=== PATIENT | male | born 1965 | race Caucasian/White ===

== ENCOUNTER 2016-08-17 09:28 | Emergency (ER) | payer BC ==
--- NOTE | 2016-08-17 10:03 | ED Physician Documentation ---
Dizziness - HISTORIAN Historian: patient - HPI Stated Complaint: Dizziness Chief Complaint: Dizziness Timing: sudden onset, other (lasts about 5-20 minutes) Duration: intermittent episodes Severity: moderate Associated Symptoms: vestibular, hearing loss (stable at baseline), ringing in ear (yesterday, not anything new), sense of spinning (left to right) Decreased Ability to Stand/ Walk: off balance, cannot walk Further Comments: yes - ROS CONST: none - PAST HX Past History: none, other (BS was 213, fast BS have been 110-130) Surgeries/Procedures: none Allergies/Adverse Reactions: Allergies Allergy/AdvReac Type Severity Reaction Status Date / Time Sulfa (Sulfonamide Allergy Unknown Unverified 09/16/14 13:10 Antibiotics) - SOCIAL HX Smoking History: non-smoker Alcohol Use: rarely Drug Use: none - FAMILY HX Family History: none - VITAL SIGNS Vital Signs: Vital Signs Temp Pulse Resp BP Pulse Ox 98 F 72 18 134/70 95 08/17/16 09:30 08/17/16 09:30 08/17/16 09:30 08/17/16 09:30 08/17/16 09:30 - REVIEWED ASSESSMENTS Nursing Assessment Reviewed: Yes Vitals Reviewed: Yes Dizziness Physical Exam - Physical Exam General Appearance: no distress EENT: ENT inspection normal, pharynx normal, no signs of dehydration, other ( cerumen with impression fo Q tip). No: pharyngeal erythema Neck: normal inspection Respiratory: no respiratory distress, breath sounds nml, chest non-tender. No: respiratory distress, wheezes, rales, rhonchi CVS: reg rate & rhythm, heart sounds normal, equal pulses Abdomen: soft, no organomegaly, normal bowel sounds, no distension, non-tender Skin: warm/dry, normal color Neuro: nml orientation, nml speech, nml cognition, mood/affect nml Cranial: nml as tested, no evidence of acute CVA Cerebellar: nml as tested, abnml gait (at the time of examination) Sensorimotor: motor nml, sensation nml. No: weakness Discharge Clincal Impression: Vertigo Referrals: Apolinar Jacobs MD [Primary Care Provider] - 2 Days Additional Instructions: Drink a lot of fluids, Try to decrease your carbs and sugars in your diet. Take Meclazine (antivert) 25mg up to every 6 hours as needed for dizziness. Avoiding working conditions that might be dangerous if you develop any dizzy spells. Condition: Stable Disposition: 01 HOME, SELF-CARE Decision to Admit: NO Date of Decison to Admit: 08/17/16 Decision Time: 10:26
[2016-08-17 11:07] LABS: eGFR (African) > 60; eGFR (Non-African) > 60
[2016-08-17 11:49] VITALS: BP 112/78
== END 2016-08-17 11:40 | disposition home or self-care (01) ==
LOC: ED 09:28
DX: R42 Dizziness and giddiness (principal)
CPT/HCPCS: 36415; 80053; 83036; 99283

== ENCOUNTER 2016-08-30 09:51 | Outpatient (CLI) | payer BC | END 2016-08-30 10:00 | LOC: LAB 09:51 | PROVIDERS: ATTEND Family Medicine | DX: E78.5 Hyperlipidemia, unspecified (principal); R73.9 Hyperglycemia, unspecified | CPT/HCPCS: 36415; 80061; 83036 ==

== ENCOUNTER 2017-03-14 16:32 | Outpatient (CLI) | payer BC ==
[2017-03-14 17:25] LABS: eGFR (African) > 60; eGFR (Non-African) > 60
[2017-03-15 16:30] LABS: ADENOVIRUS F 40/41 Not Detected (Not Detected); ASTROVIRUS Not Detected (Not Detected); C. DIFFICILE (TOXIN A/B) Not Detected (Not Detected); CRYPTOSPORIDIUM Not Detected (Not Detected); CYCLOSPORA CAYETANENSIS Not Detected (Not Detected); ENTAMOEBA HISTOLYTICA Not Detected (Not Detected); GIARDIA LAMBLIA Not Detected (Not Detected); ROTAVIRUS A Not Detected (Not Detected); SAPOVIRUS Not Detected (Not Detected); VIBRIO CHOLERAE Not Detected (Not Detected)
== END 2017-03-14 16:33 ==
LOC: LAB 16:32
PROVIDERS: ATTEND Family Medicine
DX: E78.2 Mixed hyperlipidemia (principal); R73.9 Hyperglycemia, unspecified; A09 Infectious gastroenteritis and colitis, unspecified
CPT/HCPCS: 36415; 80053; 80061; 83036; 87507

== ENCOUNTER 2017-07-04 08:08 | Outpatient (CLI) | payer BC | END 2017-07-04 08:10 | LOC: LAB 08:08 | PROVIDERS: ATTEND Nurse Practitioner Family | DX: E29.1 Testicular hypofunction (principal) | CPT/HCPCS: 36415; 84403 ==

== ENCOUNTER 2017-07-05 09:11 | Outpatient (CLI) | payer BC | END 2017-07-05 09:12 | LOC: LAB 09:11 | PROVIDERS: ATTEND Nurse Practitioner Family | DX: E29.1 Testicular hypofunction (principal) | CPT/HCPCS: 36415; 84403 ==

== ENCOUNTER 2019-04-14 18:01 | Emergency (ER) | payer BC ==
--- NOTE | 2019-04-14 18:10 | ED Physician Documentation ---
Head Injury - HISTORIAN Historian: patient - HPI Stated Complaint: fall Chief Complaint: Head Injury Additional Information: 53 year old male presents to the ER s/p fall and hit the back of his head on concrete- was dazed but did not lose consciousness. Onset: just prior to arrival Where: work Timing: still present Context: fall, direct blow Severity: moderate Loss of Consciousness: dazed - ROS CONST: headache CVS/RESP: none EYES/ENT: none MS/SKIN/LYMPH: denies: neck pain, back pain GI/: denies: nausea, vomiting - PAST HX Past History: other (HTN, Fungal infection-feet) Immunizations: UTD Allergies/Adverse Reactions: Allergies Allergy/AdvReac Type Severity Reaction Status Date / Time Sulfa (Sulfonamide Allergy Unknown Verified 04/14/19 18:08 Antibiotics) Home Medications: Ambulatory Orders Medication Instructions Recorded Losartan Potassium [Cozaar] 1 tab PO DAILY 04/14/19 - SOCIAL HX Smoking History: non-smoker Alcohol Use: none Drug Use: none - FAMILY HX Family History: none - VITAL SIGNS Vital Signs: Vital Signs Temp Pulse Resp BP Pulse Ox 98.6 F 75 18 145/96 95 04/14/19 18:05 04/14/19 18:05 04/14/19 18:05 04/14/19 18:05 04/14/19 18:05 - REVIEWED ASSESSMENTS Nursing Assessment Reviewed: Yes Vitals Reviewed: Yes ED Results Lab/Radiology - Radiology Radiology Impressions: Date of study: 04/14/2019. CLINICAL HISTORY: FALL TODAY; HIT BACK OF HEAD TECHNIQUE: 5 mm contiguous axial images of the brain, noncontrast. FINDINGS: There is no evidence of intracranial mass effect, hemorrhage, or acute hydrocephalus. The lateral ventricles are symmetrical and the 4th ventricle is midline without shift. No acute brain parenchymal changes or extra-axial fluid collections are identified. The posterior fossa contents are within normal limits. The calvarium is intact. The visualized sinuses and mastoid air cells are clear. IMPRESSION: No acute intracranial process. Electronically signed on Apr 14, 2019 6:29:13 PM CDT by: Elver Pickett - Orders Orders: ED Orders Category Date Time Status CT BRAIN W/O CONTRAST Stat Exams 04/14/19 Completed Head Injury Physical Exam - Physical Exam General Appearance: no acute distress, alert Head: non-tender, no swelling Neck: non-tender, painless ROM Eyes: DONNA, EOMI, lids & conjunct. nml ENT: nml external inspection, pharynx nml, ears nml, nose nml Neuro: alert, oriented x3, cooperative, interactive, mood/affect nml Cranial: nml as tested Cerebellar: nml as tested Sensorimotor: motor nml, sensation nml Resp/CVS: breath sounds nml, heart sounds nml, no resp. distress, lungs clear Abdomen: non-tender, nml bowel sounds Back: non-tender Skin: warm/dry, normal color Extremities: atraumatic, nml ROM, gait nml - [place] Coma Score Coma Scale Eye Opening: Spontaneous Coma Scale Verbal: Oriented Coma Scale Motor: Obeys Commands Discharge Clincal Impression: Head injury Referrals: Apolinar Jacobs MD [Primary Care Provider] - 2 Days Additional Instructions: Alternate Tylenol and Ibuprofen as needed for headaches Use ice pack to affected area Home and Rest Condition: Good Disposition: 01 HOME, SELF-CARE Decision to Admit: NO Decision Time: 18:46
--- NOTE | 2019-04-14 18:33 | Diagnostic Imaging Report ---
PATIENT MR#: [id number] PATIENT PATIENT NAME: ROSEMARIE MAYO DATE OF : 1965 REFERRING PHYSICIAN: Alejandrina Portillo EXAM DATE: 04/14/2019 ACCESSION NUMBER: [id number] EXAM DESCRIPTION: CT BRAIN W/O CONTRAST CT brain noncontrast Date of study: 04/14/2019. CLINICAL HISTORY: FALL TODAY; HIT BACK OF HEAD TECHNIQUE: 5 mm contiguous axial images of the brain, noncontrast. FINDINGS: There is no evidence of intracranial mass effect, hemorrhage, or acute hydrocephalus. The lateral rossana tricles are symmetrical and the 4th ventricle is midline without shift. No acute brain parenchymal changes or ext ra-axial fluid collections are identified. The posterior fossa contents are within normal limits. The calvarium is intact. The visualized sinuses and mastoid air cells are clear. IMPRESSION: No acute intracranial process. Read by: Dr. Elver Pickett Transcribed by: Transcribed Date: Electronically signed by: Dr. Elver Pickett Date signed: 04/14/2019 6:32:43 PM
[2019-04-14 19:29] VITALS: BP 124/74
== END 2019-04-14 18:54 | disposition home or self-care (01) ==
LOC: ED 18:01
DX: S09.90XA Unspecified injury of head, initial encounter (principal); W01.198A Fall on same level from slipping, tripping and stumbling with subsequent striking against other object, initial encounter
CPT/HCPCS: 70450; 99282; 99283